=== PATIENT | male | born 1990 | race Caucasian/White ===

== ENCOUNTER → 2023-07-19 09:05 | Outpatient (CLI) | payer BC, SELFPAY ==
[2023-07-19 19:18] LABS: Alanine Aminotransferase 49 IU/L (<50); Albumin 4.4 g/dL (3.5-5.0); Albumin Globulin Ratio 1.5 (1.0-2.8); Alkaline Phosphatase 67 U/L (38-126); Aspartate Aminotransferase 32 IU/L (17-59); BUN Creatinine Ratio 17.3 (6-22); Bilirubin Total 0.6 mg/dL (0.2-1.3); Blood Urea Nitrogen 13 mg/dL (9-20); Calcium 9.6 mg/dL (8.4-10.2); Carbon Dioxide 28 mmol/L (22-32); Chloride 104 mmol/L (98-107); Cholesterol 150 mg/dL (140-199); Estimated Glomerular Filt Rate > 60 mL/min (>60); Globulin 2.9 g/dL (1.7-4.1); Glucose 98 mg/dL (70-100); HDL Cholesterol 46 mg/dL (40-60); HEMOLYSIS < 15 (0-50); LDL Cholesterol Calculated 85 mg/dL (<100); Potassium 4.8 mmol/L (3.4-5.1); Sodium 138 mmol/L (137-145); Total Protein 7.3 g/dL (6.3-8.2); Triglycerides 95 mg/dL (35-150)
[2023-07-19 19:27] LABS: Add Manual Diff / Slide Review NO; Basophils Absolute Auto 100 /uL (0-100); Basophils Percent Auto 0.6 % (0-2); Eosinophils Absolute Auto 300 /uL (0-450); Eosinophils Percent Auto 3.3 % (2-4); Hematocrit 41.6 % (41-53); Hemoglobin 14.4 g/dL (13.5-17.5); Lymphocytes Absolute Auto 1700 /uL (1100-4500); Lymphocytes Percent Auto 19.2 % (25-40); Mean Corpuscular HGB Conc 34.5 % (30-36); Mean Corpuscular Hemoglobin 30.8 PG (26-34); Mean Corpuscular Volume 89.2 fL (80-100); Monocytes Absolute Auto 900 /uL (0-900); Monocytes Percent Auto 10.6 % (3-14); Neutrophils Absolute Auto 5900 /uL (1500-7000); Neutrophils Percent Auto 66.3 % (50-75); Platelet Count 444 X10^3/uL (150-400); Red Blood Cell Count 4.67 X10^6/uL (4.5-5.9); Red Cell Distribution Width 12.4 % (11.6-14.8); White Blood Cell Count 8.9 X10^3/uL (4.5-11.0)
[2023-07-19 20:52] LABS: TSH w/ Reflex to FT4 1.14 uIU/mL (0.47-4.68)
== END ==
PROVIDERS: PCP Physician Assistant Medical; Visit Provider Physician Assistant Medical
DX: E66.9 Obesity, unspecified (principal); K44.9 Diaphragmatic hernia without obstruction or gangrene; R53.83 Other fatigue
CPT/HCPCS: 80053; 80061; 84443; 85025

== ENCOUNTER → 2023-12-13 10:21 | Outpatient (CLI) | payer BC, SELFPAY ==
[2023-12-13 19:41] LABS: Add Manual Diff / Slide Review NO; Basophils Absolute Auto 100 /uL (0-100); Basophils Percent Auto 0.8 % (0-2); Eosinophils Absolute Auto 300 /uL (0-450); Eosinophils Percent Auto 3.4 % (2-4); Hemoglobin 14.4 g/dL (13.5-17.5); Lymphocytes Absolute Auto 1700 /uL (1100-4500); Lymphocytes Percent Auto 18.4 % (25-40); Mean Corpuscular HGB Conc 33.4 % (30-36); Mean Corpuscular Hemoglobin 30.2 PG (26-34); Mean Corpuscular Volume 90.3 fL (80-100); Monocytes Absolute Auto 900 /uL (0-900); Monocytes Percent Auto 9.3 % (3-14); Neutrophils Absolute Auto 6400 /uL (1500-7000); Neutrophils Percent Auto 68.1 % (50-75); Platelet Count 437 X10^3/uL (150-400); Red Blood Cell Count 4.76 X10^6/uL (4.5-5.9); White Blood Cell Count 9.4 X10^3/uL (4.5-11.0)
[2023-12-13 20:09] LABS: Alanine Aminotransferase 65 IU/L (<50); Albumin 4.6 g/dL (3.5-5.0); Albumin Globulin Ratio 1.4 (1.0-2.8); Alkaline Phosphatase 81 U/L (38-126); Aspartate Aminotransferase 64 IU/L (17-59); BUN Creatinine Ratio 16.9 (6-22); Bilirubin Total 0.7 mg/dL (0.2-1.3); Blood Urea Nitrogen 13 mg/dL (9-20); C-Reactive Protein Quant 1.1 mg/dL (<1.0); Calcium 9.4 mg/dL (8.4-10.2); Carbon Dioxide 28 mmol/L (22-32); Chloride 100 mmol/L (98-107); Cholesterol 161 mg/dL (140-199); Estimated Glomerular Filt Rate > 60 mL/min (>60); Globulin 3.3 g/dL (1.7-4.1); Glucose 100 mg/dL (70-100); HDL Cholesterol 41 mg/dL (40-60); HEMOLYSIS 16 (0-50); LDL Cholesterol Calculated 105 mg/dL (<100); Potassium 4.6 mmol/L (3.4-5.1); Sodium 136 mmol/L (137-145); Total Protein 7.9 g/dL (6.3-8.2); Triglycerides 74 mg/dL (35-150)
[2023-12-13 20:22] LABS: TSH w/ Reflex to FT4 0.82 uIU/mL (0.47-4.68)
[2023-12-13 20:39] LABS: Testosterone 211 ng/dL (132-813)
[2024-01-06 15:07] LABS: Miscellaneous to LabCorp 9
== END ==
PROVIDERS: PCP Physician Assistant Medical; Visit Provider Physician Assistant Medical
DX: R07.9 Chest pain, unspecified (principal); R53.83 Other fatigue; R79.89 Other specified abnormal findings of blood chemistry
CPT/HCPCS: 80053; 80061; 84403; 84443; 85025; 85652; 86140

== ENCOUNTER → 2024-01-09 11:22 | Outpatient (CLI) | payer BC, SELFPAY ==
[2024-01-09 19:47] LABS: Hematocrit 41.4 % (41-53); Hemoglobin 14.1 g/dL (13.5-17.5); Mean Corpuscular Hemoglobin 30.8 PG (26-34); Mean Corpuscular Volume 90.5 fL (80-100); Platelet Count 416 X10^3/uL (150-400); Red Blood Cell Count 4.57 X10^6/uL (4.5-5.9); Red Cell Distribution Width 12.4 % (11.6-14.8); White Blood Cell Count 9.3 X10^3/uL (4.5-11.0)
[2024-01-09 19:52] LABS: HEMOLYSIS < 15 (0-50); Iron 72 ug/dL (49-181)
[2024-01-09 20:08] LABS: Percent Iron Saturation 28 % (20-50); Total Iron Binding Capacity 260 ug/dL (261-462); Transferrin 231 mg/dL (206-381)
[2024-01-09 20:38] LABS: Ferritin 84 ng/mL (18-464)
[2024-01-09 20:50] LABS: Neutrophils Absolute Manual 5487 /uL (3000-5900); RBC Morphology Normal Morphology; Total Cells Counted 100
== END ==
PROVIDERS: PCP Physician Assistant Medical; Visit Provider Physician Assistant Medical
DX: D75.839 Thrombocytosis, unspecified (principal)
CPT/HCPCS: 82728; 83540; 83550; 85025

== ENCOUNTER → 2024-01-14 15:00 | Outpatient (CLI) | payer BC, SELFPAY ==
--- NOTE | 2024-01-14 15:01 | DI.ECHO.S_ITS ---
[place] [facility]+ [facility] : : [address] : : [place] : : [id number] : : Phone: [phone] Echocardiogram Report + + :Name: KACY ABBASI Study Date: 01/14/2024 Height: 72 in : :[facility] ReadingLocation: Weight: 305 lb: : Gender: Male BSA: 2.5 m2 : :: 1990 Age: 33 yrs : :Reason For Study: CHEST PAIN : :Ordering Physician: : :JO ANN JARRELL Performed By: Nate Rainey : :Referring: JO ANN JARRELL : + + Interpretation Summary The study quality was technically difficult. The ejection fraction is estimated to be 55-60%. Diastolic parameters suggest probable normal left ventricular diastolic function and normal filling pressures. The right ventricle is normal in size and function. No obvious valvular abnormalities. Pulmonary artery pressures cannot be estimated because of the lack of a measurable TR jet velocity. Procedure: A two-dimensional transthoracic echocardiogram with color flow and Doppler was performed. The study quality was technically difficult. There is no prior echocardiogram noted for this patient. The patient was in normal sinus rhythm during the exam. Left Ventricle: The left ventricle is normal in size. There is normal left ventricular wall thickness. There is no ventricular septal defect visualized. The ejection fraction is estimated to be 55-60%. Regional wall motion abnormalities cannot be excluded due to limited visualization. Diastolic parameters suggest probable normal left ventricular diastolic function and normal filling pressures. Right Ventricle: The right ventricle is normal in size and function. Atria: The left atrial size is normal. Right atrial size is normal. There is no Doppler evidence for an atrial septal defect. Mitral Valve: The mitral valve leaflets appear mildly thickened, but open well. There is trace mitral regurgitation. Aortic Valve: The aortic valve is trileaflet. The aortic valve opens well. The aortic valve is slightly calcified. There is no aortic valve stenosis. No aortic regurgitation is present. Tricuspid Valve: The tricuspid valve is not well visualized, but is grossly normal. No tricuspid regurgitation. Pulmonary artery pressures cannot be estimated because of the lack of a measurable TR jet velocity. Pulmonic Valve: The pulmonic valve is not well seen, but is grossly normal. There is no pulmonic valvular regurgitation. Great Vessels: The aortic root is normal size. The dimensions of the ascending aorta are normal. The pulmonary artery is normal size. The inferior vena cava was not visualized. Pericardium/ Pleura There is no pericardial effusion. MMode/2D Measurements & Calculations LVIDd: 5.7 cm LVOT diam: 2.3 cm LVIDs: 3.5 cm Ao root diam: 3.3 cm FS: 37.7 % asc Aorta Diam: 3.2 cm EPSS: 0.89 cm IVSd: 0.89 cm LVPWd: 1.0 cm LV khan. diameter/BSA (cm/m^2): 2.2 LV sys. diameter/BSA (cm/m^2): 1.4 LA A2 area: 20.2 cm2 RA long axis: 4.0 cm LA A4 area: 17.3 cm2 RA area: 10.9 cm2 LA length (vol): 5.3 cm RA vol: 25.4 ml LA vol: 55.9 ml RA : 10.0 ml/m2 LA vol index: 21.9 ml/m2 RVD1 (basal): 3.6 cm RVD2 (mid): 3.2 cm TAPSE: 2.8 cm Doppler Measurements & Calculations Ao V2 max: 156.7 cm/sec LVOT Max Asy: 131.5 cm/sec Ao V2 mean: 106.8 cm/sec LV V1 max P.9 mmHg Ao max P.8 mmHg LV V1 VTI: 24.2 cm Ao mean P.1 mmHg TERE(I,D): 3.2 cm2 Ao V2 VTI: 31.3 cm TERE(V,D): 3.5 cm2 sev ratio: 0.77 TERE indexed to BSA (cm^2/m^2): 1.3 MV E max say: 85.0 cm/sec PA V2 max: 99.7 cm/sec MV A max say: 55.0 cm/sec PA V2 mean: 70.2 cm/sec MV E/A: 1.5 PA mean P.2 mmHg Med Peak E' Say: 12.6 cm/sec PA pr(Accel): 25.9 mmHg E/E' med: 6.7 Lat Peak E' Say: 12.4 cm/sec E/E' lat: 6.9 E/e' average: 6.8 MV dec time: 0.19 sec SV(LVOT): 100.1 ml Reading Physician:04:11 PM
== END ==
LOC: ECHO 15:01
PROVIDERS: PCP Physician Assistant Medical; Referring Provider Physician Assistant Medical; Visit Provider Physician Assistant Medical
DX: R07.9 Chest pain, unspecified (principal)
CPT/HCPCS: 93306

== ENCOUNTER → 2024-04-02 09:05 | Outpatient (CLI) | payer SELFPAY ==
[2024-04-02 19:24] LABS: Hematocrit 41.8 % (41-53); Hemoglobin 14.1 g/dL (13.5-17.5); Mean Corpuscular HGB Conc 33.8 % (30-36); Mean Corpuscular Hemoglobin 30.3 PG (26-34); Mean Corpuscular Volume 89.5 fL (80-100); Platelet Count 417 X10^3/uL (150-400); Red Blood Cell Count 4.67 X10^6/uL (4.5-5.9); Red Cell Distribution Width 12.7 % (11.6-14.8); White Blood Cell Count 9.1 X10^3/uL (4.5-11.0)
[2024-04-02 19:41] LABS: Alanine Aminotransferase 53 IU/L (<50); Albumin 4.4 g/dL (3.5-5.0); Albumin Globulin Ratio 1.6 (1.0-2.8); Alkaline Phosphatase 73 U/L (38-126); Aspartate Aminotransferase 34 IU/L (17-59); BUN Creatinine Ratio 16.4 (6-22); Bilirubin Total 0.5 mg/dL (0.2-1.3); Blood Urea Nitrogen 12 mg/dL (9-20); Calcium 9.3 mg/dL (8.4-10.2); Carbon Dioxide 27 mmol/L (22-32); Chloride 102 mmol/L (98-107); Estimated Glomerular Filt Rate > 60 mL/min (>60); Globulin 2.8 g/dL (1.7-4.1); Glucose 109 mg/dL (70-100); HEMOLYSIS < 15 (0-50); Potassium 4.6 mmol/L (3.4-5.1); Sodium 138 mmol/L (137-145); Total Protein 7.2 g/dL (6.3-8.2)
== END ==
PROVIDERS: PCP Physician Assistant Medical; Visit Provider Physician Assistant Medical
DX: R79.89 Other specified abnormal findings of blood chemistry (principal); E66.9 Obesity, unspecified
CPT/HCPCS: 80053; 85027

== ENCOUNTER → 2024-05-07 13:57 | Outpatient (CLI) | payer OTHER, SELFPAY ==
--- NOTE | 2024-05-07 13:58 | DI.NM.S_ITS ---
PROCEDURE: NM EXERCISE TREADMILL NON NUC COMPARISON: None. INDICATIONS: chest pain with nausea/dizziness x 4 years FINDINGS: Patient exercised per the standard [facility] protocol. Total exercise time was 6 minutes and 46 seconds. Test was terminated secondary to fatigue. Maximal heart rate obtained is 155 bpm which is 83% of max impacted heart rate. Maximum blood pressure was 178/[place] [address]. LAKSHMI +46%. 7.0 METS. No ischemic changes noted. No arrhythmias present. Normal heart rate and blood pressure response to exercise. No chest pains voiced. IMPRESSION: 1. Nondiagnostic exercise treadmill stress test due to inability to reach target heart rate. 2. Below average exercise tolerance. Dictated by: Figueroa Munguia M.D. on 05/07/2024 at 16:32 Approved by: Figueroa Munguia M.D. on 05/07/2024 at 16:34
--- NOTE | 2024-05-07 13:58 | DI.US.S_ITS ---
PROCEDURE: US ABDOMEN LIMITED INDICATIONS: chest pain/elevated LFT's TECHNIQUE: Real-time scanning was performed of the abdominal and retroperitoneal organs, with image documentation. COMPARISON: None. FINDINGS: Liver: The liver demonstrates diffusely increased echotexture without focal abnormalities consistent with chronic hepatocellular disease/hepatic steatosis. Hepatomegaly. Main portal vein is patent with hepatopetal flow. Gallbladder: Gallbladder is normal in sonographic appearance without gallstones, gallbladder wall thickening, pericholecystic fluid, or abnormal sonographic Mcgrath's. Biliary ducts: Intrahepatic bile ducts are non-dilated. Extrahepatic bile ducts are not well visualized secondary to bowel gas and patient imaging characteristics. Pancreas: Pancreas not well visualized secondary to bowel gas. Miscellaneous: No free abdominal fluid. IMPRESSION: The liver demonstrates diffusely increased echotexture without focal abnormalities consistent with chronic hepatocellular disease/hepatic steatosis. Hepatomegaly. Dictated by: Shukri Bird M.D. on 05/07/2024 at 17:02 Approved by: Shukri Bird M.D. on 05/07/2024 at 17:03
== END ==
PROVIDERS: PCP Physician Assistant Medical; Referring Provider Physician Assistant Medical; Visit Provider Physician Assistant Medical
DX: R07.9 Chest pain, unspecified (principal); R79.89 Other specified abnormal findings of blood chemistry; R16.0 Hepatomegaly, not elsewhere classified
CPT/HCPCS: 76705; 93017

== ENCOUNTER → 2024-12-24 10:49 | Outpatient (CLI) | payer OTHER, SELFPAY ==
[2024-12-24 19:19] LABS: Add Manual Diff / Slide Review NO; Hematocrit 40.0 % (41-53); Hemoglobin 13.7 g/dL (13.5-17.5); Lymphocytes Absolute Auto 1700 /uL (1100-4500); Mean Corpuscular HGB Conc 34.3 % (30-36); Mean Corpuscular Hemoglobin 30.3 PG (26-34); Mean Corpuscular Volume 88.4 fL (80-100); Platelet Count 400 X10^3/uL (150-400)
[2024-12-24 19:26] LABS: Alanine Aminotransferase 44 IU/L (<50); Albumin 4.2 g/dL (3.5-5.0); Albumin Globulin Ratio 1.4 (1.0-2.8); Alkaline Phosphatase 88 U/L (38-126); Blood Urea Nitrogen 12 mg/dL (9-20); Calcium 9.2 mg/dL (8.4-10.2); Carbon Dioxide 26 mmol/L (22-32); Chloride 103 mmol/L (98-107); Estimated Glomerular Filt Rate > 60 mL/min (>60); Globulin 3.1 g/dL (1.7-4.1); Glucose 131 mg/dL (70-99); HEMOLYSIS < 15 (0-50); Potassium 4.4 mmol/L (3.4-5.1); Sodium 138 mmol/L (137-145); Total Protein 7.3 g/dL (6.3-8.2)
== END ==
PROVIDERS: PCP Physician Assistant Medical; Visit Provider Family Medicine
DX: R10.31 Right lower quadrant pain (principal)
CPT/HCPCS: 80053; 85025